=== PATIENT | male | born 1975 | race African-American/Black ===

== ENCOUNTER 2018-02-28 10:55 | Emergency (ER) | payer OTHER ==
[~2018-02-28] VITALS: Ht 177.8 cm; Wt 90.7 kg
[~2018-02-28 10:55] MED LIST: AMLODIPINE BESY10 MG PO; ASPIRIN81 M2 PO; ATORVASTATIN CA20 MG PO; CARVEDILOL6.25 MG PO; CLONIDINE HCL0.3 M2 PO; FLEXERIL PO; GLUCOTROL10 MG PO; IBUPROFEN 600600 M1 PO; LANTUS100 UNIT/M SUBQ; LISINOPRIL20 MG PO; METFORMIN PO; NITROGLYCERIN0.4 MG SUBLING; NORCO 5-325 TA1 EACH PO; NOVOLOG100 UNIT/1 SUBQ; PEPCID20 MG PO; PLAVIX 75 MG TA75 M1 PO
[2018-02-28 11:23] LABS: ABSOLUTE NEUTROPHILS 2.3 thou/uL (1.4-8.2); BASOPHILS 0.5 % (0.0-2.0); EOSINOPHILS 2.2 % (0.0-3.0); HEMATOCRIT 44.7 % (42.0-52.0); HEMOGLOBIN 15.1 gm/dL (14.0-18.0); LYMPHOCYTES 45.8 % (24.0-44.0); MCH 25.4 pg (26.0-34.0); MCHC 33.9 g/dL (28.0-37.0); MCV 74.8 fL (80.0-100.0); MONOCYTES 10.7 % (1.0-8.0); PLATELET COUNT 219 thou/uL (150-400); POLYS 40.8 % (36.0-66.0); RBC 5.97 mil/uL (4.50-6.00); RDW 13.8 % (10.5-14.5); WBC 5.7 thou/uL (4.0-11.0)
[2018-02-28 11:30] LABS: CREATININE 1.2 mg/dL (0.7-1.3); POTASSIUM 3.2 mmol/L (3.5-5.1)
[2018-02-28 12:03] LABS: URINE BILIRUBIN NEGATIVE (Negative); URINE BLOOD NEGATIVE (Negative); URINE CLARITY CLEAR; URINE COLOR YELLOW; URINE GLUCOSE-RANDOM* 3+ (Negative); URINE KETONES NEGATIVE (Negative); URINE LEUKOCYTES-REFLEX NEGATIVE (Negative); URINE NITRITE-REFLEX NEGATIVE (Negative); URINE PROTEIN (DIPSTICK) NEGATIVE (Negative); URINE UROBILINOGEN 0.2 E.U./dl (0.2-1.0)
[2018-02-28] MEDS ORDERED: NOVOLOG FL100 UNIT/M SUBQ (12:47)
== END 2018-02-28 13:27 | disposition home or self-care (01) ==
LOC: ER 10:55
PROVIDERS: Physician Assistant
DX: E11.65 Type 2 diabetes mellitus with hyperglycemia (principal); I10 Essential (primary) hypertension; I25.2 Old myocardial infarction; Z87.891 Personal history of nicotine dependence

== ENCOUNTER 2019-09-25 10:42 | Emergency (ER) | payer OTHER ==
[~2019-09-25] VITALS: Ht 177.8 cm; Wt 90.7 kg
[~2019-09-25 10:42] MED LIST changes: +NOVOLOG FL100 UNIT/M SUBQ
[2019-09-25 11:12] LABS: ABSOLUTE NEUTROPHILS 3.4 thou/uL (1.4-8.2); BASOPHILS 0.6 % (0.0-2.0); HEMATOCRIT 52.3 % (42.0-52.0); HEMOGLOBIN 17.6 gm/dL (14.0-18.0); LYMPHOCYTES 38.9 % (24.0-44.0); MCH 25.2 pg (26.0-34.0); MCHC 33.7 g/dL (28.0-37.0); MCV 74.8 fL (80.0-100.0); MONOCYTES 9.6 % (1.0-8.0); POLYS 49.9 % (36.0-66.0); RBC 6.99 mil/uL (4.50-6.00); RDW 14.2 % (10.5-14.5); WBC 6.8 thou/uL (4.0-11.0)
[2019-09-25 11:25] LABS: ANION GAP 16 mmol/L (7-16); BUN 19 mg/dL (7-18); CALCIUM 10.6 mg/dL (8.5-10.1); CHLORIDE 90 mmol/L (98-107); CO2 25 mmol/L (21-32); CREATININE 1.3 mg/dL (0.7-1.3); GLUCOSE 309 mg/dL (74-106); POTASSIUM 3.4 mmol/L (3.5-5.1); SODIUM 131 mmol/L (136-145)
[2019-09-25 11:36] LABS: LIPASE 97 U/L (73-393); SGOT 21 U/L (15-37); SGPT 31 U/L (30-65); TOTAL BILIRUBIN 1.1 mg/dL (<0.1-1.0); TOTAL PROTEIN 9.5 g/dL (6.4-8.2); TROPONIN-I <0.06 ng/mL (<0.06)
[2019-09-25 12:29] LABS: LARGE PLATELETS FEW; PLATELET COUNT 210 thou/uL (150-400)
[2019-09-25 12:57] VITALS: BP 143/92
[2019-09-25 13:01] LABS: APTT 27.8 Seconds (24.5-32.8); D-DIMER 0.19 ug/mLFEU (0.19-0.50); PROTIME 10.3 Seconds (9.3-11.4)
[2019-09-25 13:08] LABS: URINE BILIRUBIN NEGATIVE (Negative); URINE BLOOD NEGATIVE (Negative); URINE CLARITY CLEAR; URINE COLOR YELLOW; URINE GLUCOSE-RANDOM* 3+ (Negative); URINE KETONES 1+ (Negative); URINE LEUKOCYTES-REFLEX NEGATIVE (Negative); URINE NITRITE-REFLEX NEGATIVE (Negative); URINE PROTEIN (DIPSTICK) NEGATIVE (Negative); URINE SPECIFIC GRAVITY 1.025 (1.005-1.035); URINE UROBILINOGEN 0.2 E.U./dl (0.2-1.0)
[2019-09-25 13:19] LABS: AMP/METHAMP Negative (Negative); BARBITURATES Negative (Negative); BENZODIAZEPINES Negative (Negative); COCAINE Negative (Negative); METHADONE Negative (Negative); OPIATES Negative (Negative); PCP Negative (Negative)
[2019-09-25] MEDS ORDERED: PRILOSEC OTC20 MG PO (13:26)
[2019-09-25] MEDS ORDERED: TRAMADOL 50 MG50 MG PO (13:26)
--- NOTE | 2019-09-25 16:11 | EKG ---
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: [facility] : 1975 Requested By: Cornelius Serna Order Number: [id number] MD: Jordi Fagan Measurements Intervals [place] Rate: 115 P: 30 UT: 181 QRS: 28 QRSD: 97 T: -67 QT: 303 QTc: 419 Interpretive Statements Sinus tachycardia Multiple ventricular premature complexes Probable left atrial enlargement Nonspecific T abnormalities, diffuse leads Compared to ECG 03/13/2015 09:44:19 Ventricular premature complex(es) now present T-wave abnormality now present Sinus rhythm no longer present ST (T wave) deviation no longer present Electronically Signed On 09-25-2019 16:10:38 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
== END 2019-09-25 14:03 | disposition home or self-care (01) ==
LOC: ER 10:42
PROVIDERS: Emergency Medicine
DX: E87.6 Hypokalemia (principal); E87.1 Hypo-osmolality and hyponatremia; R10.11 Right upper quadrant pain; R00.1 Bradycardia, unspecified; E11.9 Type 2 diabetes mellitus without complications; I10 Essential (primary) hypertension; I25.2 Old myocardial infarction; Z98.890 Other specified postprocedural states; Z79.4 Long term (current) use of insulin; Z87.891 Personal history of nicotine dependence